=== PATIENT | female | born 1955 | race Caucasian/White ===

== ENCOUNTER 2017-09-13 08:31 | Day surgery (SDC) | payer OTHER ==
[2017-09-13] MEDS ORDERED: NS 500 ML IV 500 ML IV ONE (09:28)
[2017-09-13] MEDS ORDERED: TETRACAINE 0.5% OPHTH 1 DOSE AFFEYE ONE ×2 (10:00→11:21)
[2017-09-13] MEDS ORDERED: VIGAMOX 0.5% OPHTH 1 DOSE AFFEYE ONE ×5 (10:01→11:41)
[2017-09-13] MEDS ORDERED: PROLENSA OPHTH 1 DOSE AFFEYE ONE (10:12)
[2017-09-13] MEDS ORDERED: ALPHAGAN-P OPHTH 1 DOSE AFFEYE ONE (10:13)
[2017-09-13] MEDS ORDERED: MYDRIACIL OPHTH 1 DOSE AFFEYE ONE ×3 (10:14→10:16)
[2017-09-13] MEDS ORDERED: CYCLOGYL 1% OPHTH 1 DOSE OP ONE ×3 (10:14→10:16)
[2017-09-13] MEDS ORDERED: AK-DILATE 2.5% OPHTH 1 DOSE OP ONE ×3 (10:14→10:16)
[2017-09-13] MEDS ORDERED: BETADINE OPHTH SOLN 5% EACHEYE ONE (11:21)
[2017-09-13] MEDS ORDERED: DUOVISC IO ONE (11:31)
[2017-09-13] MEDS ORDERED: ADRENALINE CHL INJ IJ ONE (11:31)
[2017-09-13] MEDS ORDERED: XYLOCAINE-MPF 1% IJ ONE (11:31)
[2017-09-13] MEDS ORDERED: BSS OPHTH (PLAIN) 500 ML with VANCOMYCIN HCL 500 MG VIAL 25 MG, ADRENALINE CHL INJ 1 MG IR ONE ×3 (11:31)
[2017-09-13 14:55] VITALS: BP 139/77
[2017-09-13] MEDS ORDERED: VERSED ONE (15:57)
[2017-09-13] MEDS ORDERED: DIPRIVAN VIAL ONE (15:57)
== END 2017-09-13 12:05 | disposition home or self-care (01) ==
LOC: SURG1 08:31
PROVIDERS: ATTEND Ophthalmology
PROC: 08RK3JZ Replacement of Left Lens with Synthetic Substitute, Percutaneous Approach (ICD-10-PCS; principal; 2017-09-13 11:15)
PROC: 08DK3ZZ Extraction of Left Lens, Percutaneous Approach (ICD-10-PCS; principal; 2017-09-13 11:15)
DX: H25.12 Age-related nuclear cataract, left eye (principal); H25.012 Cortical age-related cataract, left eye; H25.042 Posterior subcapsular polar age-related cataract, left eye
CPT/HCPCS: A4217; J0170; J2250; J3370; J3490